=== PATIENT | male | born 1935 | race Caucasian/White ===

== ENCOUNTER 2016-09-29 04:12 | Emergency (ER) | payer MEDICARE, BC ==
[~2016-09-29] VITALS: Ht 182.9 cm; Wt 81.7 kg
[2016-09-29] MEDS ORDERED: KEFLEX500 MG PO (05:19)
== END 2016-09-29 05:39 | disposition home or self-care (01) ==
LOC: ED 04:12
PROC: 0T9B70Z Drainage of Bladder with Drainage Device, Via Natural or Artificial Opening (ICD-10-PCS; principal; 2016-09-29)
DX: R33.9 Retention of urine, unspecified (principal); F17.200 Nicotine dependence, unspecified, uncomplicated; Z90.89 Acquired absence of other organs
CPT/HCPCS: 51702; 81001; 99284